=== PATIENT | female | born 1965 | race American Indian/Alaskan Native ===

== ENCOUNTER 2019-07-12 23:27 | Outpatient (CLI) | payer OTHER | END 2019-07-13 21:38 | disposition home or self-care (01) | LOC: RAD 23:27 | DX: M25.562 Pain in left knee (principal) ==

== ENCOUNTER 2019-12-10 11:07 | Outpatient (CLI) | payer OTHER | END 2019-12-10 22:34 | disposition home or self-care (01) | LOC: US 11:07 | DX: M79.605 Pain in left leg (principal) ==